=== PATIENT | male | born 1980 | race Caucasian/White ===

== ENCOUNTER 2024-11-07 12:05 | Emergency (ER) | payer OTHER ==
[2024-11-07] MEDS: HYDROmorphone 1 MG/ML Syringe IM ONE (12:22)
== END 2024-11-07 13:27 | disposition home or self-care (01) ==
LOC: MW.ED 12:05
DX: M54.50 Low back pain, unspecified (principal); Z75.3 Unavailability and inaccessibility of health-care facilities
CPT/HCPCS: 96372; 99283; J1171; 99282